=== PATIENT | male | born 1985 | race Caucasian/White ===

== ENCOUNTER 2016-12-21 20:01 | Inpatient (IN) ==
[2016-12-21] MEDS ORDERED: PANTOPRAZOLE 40 MG VIAL IV STA (20:16)
[2016-12-21] MEDS ORDERED: methylPREDNISolone SOD SUC 125 MG/2 ML VIAL IV STA (20:16)
[2016-12-21] MEDS ORDERED: LEVOFLOXACIN INJ 750 MG in PREMIX 1 EACH IV STA (20:16)
[2016-12-21] MEDS ORDERED: DICYCLOMINE 20 MG/2 ML AMP IM ONE ×2 (20:16→20:33)
[2016-12-21] MEDS ORDERED: METOCLOPRAMIDE 10 MG/2 ML VIAL IV STA (20:16)
[2016-12-21] MEDS ORDERED: ONDANSETRON 4 MG/2 ML VIAL IV STA (20:16)
[2016-12-21] MEDS ORDERED: SODIUM CHLORIDE 0.9% 2,000 ML IV STA (20:16)
--- NOTE | 2016-12-21 20:20 | Emergency Department Note ---
Arrival - Arrival Chief Complaint: Abdominal / Flank Pain Stated Complaint: vomiting ED Nursing Triage Note: C/O Generalized abd pain/nausea/vomiting. Denies fever at home. Last [id number]. Pt has hx of Crohn's disease, but hasn't been followed by anyone since Dr. Oseguera retired. Mode of Arrival: Ambulatory Limitations: No Limitations Source: Patient Time Seen by Provider: 12/21/16 20:16 - History of Present Illness HPI Narrative: Is 31-year-old white male presents with 3 days of diarrhea, nausea, vomiting, and abdominal cramping. The patient has long-standing Crohn's disease and is status post colon surgery for this condition in the past. He has been having watery diarrhea approximately 12 times a day but none containing red blood or melena. He also denies any chills or fever. The patient has not seen a physician in over 2 years for his condition and does not take medication on a regular basis. At rest he does not appear in any medical distress. Onset (ago): day(s) (patient presents 3 days post-onset of symptoms) Consistency: constant Allergies/Adverse Reactions: Allergies Allergy/AdvReac Type Severity Reaction Status Date / Time No Known Allergies Allergy Verified 12/21/16 20:04 Home Medications: Home Medications Medication Instructions Recorded Confirmed Type Bupropion HCl [Zyban] 300 mg PO BEDTIME 12/21/16 12/21/16 History HydrOXYzine PAMOATE CAP [Vistaril 50 mg PO BEDTIME 12/21/16 12/21/16 History Cap] Review of System - Review of System 12 point system: reviewed and no additional remarkable complaints except as stated - Review of System Constitutional: Present: as per HPI Gastrointestinal: Present: as per HPI Medical,Surgical,& Family Hx - Medical History Gastrointestinal: History of: Crohn's Disease - Surgical History Abdominal Surgeries: Surgical HX of: Abdominal Surgery (colon surg) - Social History Smoking Status: Current every day smoker Frequency of Alcohol Use: None Type of Drug Use: None Exam Physical Examination: GENERAL: Well developed, well nourished white male in no acute distress. HEENT: Normocephalic. No trauma. Moist mucous membranes. EOMI. PERRLA. ENT clear NECK: Supple. No adenopathy. CARDIAC: Regular. No murmurs. Heart rate 110 CHEST: Clear to auscultation. No respiratory distress. O2 sat 99% ABDOMEN: Soft. Right gutter tenderness. Hypoactive bowel sounds. EXTREMITIES: No trauma. Normal ROM. No pedal edema. SKIN: No diaphoresis. No rash. NEURO: Alert. Neuro intact No focal deficits. Vital Signs: Vital Signs Temperature 98.7 F 12/21/16 20:04 Pulse Rate 106 H 12/21/16 20:04 Respiratory Rate 16 12/21/16 20:04 Blood Pressure 136/75 12/21/16 20:04 O2 Sat by Pulse Oximetry 99 12/21/16 20:04 Course - Reevaluation(s) Reevaluation #1: Discussed with patient the results of his studies which reveal active Crohn's flare - Consultations Consultation #1: Discussed with Dr. Black, hospitalist, who will admit for further evaluation and treatment. Results - Labs CBC & BMP: 12/21/16 20:24 12/21/16 20:24 Labs: I have reviewed the laboratory noted the elevated white blood cell count. - Diagnostic Findings Procedure: CT Abdomen and Pelvis: image reviewed by me, report reviewed by me ( significantly thickened lining of the terminal ileum and cecum come along with submucosa was trending associated with active Crohn's.) Disposition Clinical Impression: exacerbation of Crohn's disease. Case discussed with: patient Disposition: Still a Patient Condition: Stable Time of Disposition: 23:10
[2016-12-21 20:31] LABS: Basophils # 0.1 10*3/uL (0.0-0.2); Basophils % 0.5 % (0.0-0.8); Eosinophils # 0.5 10*3/uL (0.0-0.87); Eosinophils % 3.3 % (0.00-10.9); Hematocrit 37.6 VOL% (42.0-52.0); Immature Granulocytes % 0.4 %; Immature Granulocytes Absolute 0.05 #; Lymphocytes # 3.7 10*3/uL (1.4-4.0); Lymphocytes % 26.9 % (21.2-54.2); Mean Corpuscular HGB Conc 31.9 GM/DL (32-36); Mean Corpuscular Hemoglobin 25 PG (27-34); Mean Corpuscular Volume 78.2 FL (87-102); Mean Platelet Volume 8.9 FL (9.6-12.0); Monocytes # 0.9 10*3/uL (0.11-0.8); Monocytes % 6.9 % (1.7-12.7); Neutrophils # 8.5 10*3/uL (1.4-7.4); Platelet Count 439 T/CUMM (130-400); Red Blood Count 4.81 MC/CUMM (3.8-5.5); Red Cell Distribution Width 15.2 % (9.3-17.3); White Blood Count 13.7 T/CUMM (4-12)
[2016-12-21] MEDS ORDERED: LEVOFLOXACIN INJ 150 ML IV ONE (20:32)
[2016-12-21] MEDS ORDERED: ONDANSETRON 4 MG/2 ML VIAL ONE (20:33)
[2016-12-21] MEDS ORDERED: METOCLOPRAMIDE 10 MG/2 ML VIAL ONE (20:33)
[2016-12-21] MEDS ORDERED: PANTOPRAZOLE 40 MG VIAL IV ONE (20:33)
[2016-12-21] MEDS ORDERED: methylPREDNISolone SOD SUC 125 MG/2 ML VIAL ONE (20:33)
[2016-12-21 21:02] LABS: Apearance,Urine CLEAR (Clear); Bilirubin,Urine Negative (Negative); Blood, Urine Negative (Negative); Glucose,Urine (UA) Negative (Negative); Hyaline Casts,Urine 4 /LPF (0-3); Ketones,Urine Negative (Negative); Mucus,Urine Occasional /LPF (Occasional); Nitrite,Urine Negative (Negative); Protein,Urine Negative; Urine Color Yellow (Yellow); Urine Urobilinogen < 2.0 EU/DL (0.2-1.0); WBC,Urine <1 /HPF (0-6)
[2016-12-21 21:03] LABS: Alanine Aminotransferase 17 U/L (16-61); Albumin 3.2 G/DL (3.4-5.0); Alkaline Phosphatase 104 U/L (45-117); Amylase 88 U/L (25-115); Aspartate Amino Transferase 17 U/L (0-37); Bilirubin,Total < 0.39 MG/DL (0.2-1.0); Blood Urea Nitrogen 8 MG/DL (7-18); Glucose 89 MG/DL (74-106); Osmolality,Calculated 284.7 MOS/KG (273-304); Sodium 145 MMOL/L (136-145); Total Protein 7.4 G/DL (6.4-8.3)
--- NOTE | 2016-12-21 22:54 | CT Report ---
Exam: CT abdomen pelvis w con Date: 12/21/2016 8:56 PM Comparison: 08/16/2016 Indication: Nausea, vomiting, right lower quadrant pain, Crohn's disease Technique:[Sequential axial scans of the abdomen and pelvis were obtained following ingestion of oral contrast and injection of 100 cc of Omnipaque 350. Coronal and sagittal 2-D reconstructions were obtained. Total DLP: 425.40] Findings: No acute findings at the visualized lung bases. The liver is normal in size with no masses or dilated ducts. The gallbladder is contracted. The spleen, pancreas, adrenal glands, and kidneys are stable in appearance. No renal or ureteral calculi are identified. The aorta is normal in size with no adjacent adenopathy. Postoperative findings are noted in the cecum/distal ileum with history of reported prior appendectomy. Progressive thickening of the wall of the distal ileum. The bowel is slightly more distended with adjacent minimal fluid/soft tissue stranding. Progressive gaseous distention of the more proximal small bowel with the largest loop measuring 30 mm in diameter. No significant oral contrast reaching the colon. No evidence of diverticulitis or free air. Minimal free fluid in the pelvis. The prostate and urinary bladder are stable in appearance with no acute osseous findings. Impression: Progressive in the cecum/terminal ileum with history of Crohn's disease. Diffuse thickening of the wall of the distal ileum measuring 12 mm. The small bowel is slightly more dilated with minimal fluid/soft tissue stranding. No free air is identified. Prior appendectomy. Nonspecific contraction of the gallbladder. PROCEDURE INTERPRETED AT [facility] DEPARTMENT OF RADIOLOGY Final Report Signed by: Dr. Gissel Tejada
[2016-12-22] MEDS ORDERED: MORPHINE 2 MG/1 ML SYRINGE IV PRN (00:30)
[2016-12-22] MEDS ORDERED: ACETAMINOPHEN 325 MG TABLET PO PRN (00:30)
[2016-12-22] MEDS ORDERED: ONDANSETRON 4 MG/2 ML VIAL IV PRN (00:30)
--- NOTE | 2016-12-22 01:03 | Hospitalist History & Physical ---
Assessment and Plan (1) Crohn disease Status: Acute Assessment and plan: The patient has symptoms consistent with Crohn disease exacerbation. The patient has received moderate dose Solu-Medrol in the emergency room. I'm going to continue with lower dose Solu-Medrol twice daily as well as metronidazole. We will obtain GI consultation morning. Current Visit: Yes Qualifiers: Gastrointestinal tract location: small intestine Digestive disease complication type: without complication Qualified Code(s): K50.00 - Crohn's disease of small intestine without complications History of Present Illness Chief complaint: abdominal pain History of present illness: Mr. Blankenship is a 31 year old male with history of previous appendectomy and diagnosis of Crohn disease at that time, which was about 5 years ago. The patient states that he had minimal abdominal discomfort symptoms intermittently until last August when he had a moderate episode. The patient was evaluated in the emergency room and given oral steroid medication with instruction to follow-up with Dr. Savage. The patient did not follow-up. The patient now comes to the hospital with 3 days of increasing abdominal discomfort in the right mid abdomen. The patient denies fever, chills, dysuria, diaphoresis. The patient's symptoms are moderate, colicky, and progressive. Home Medications Medication Instructions Recorded Confirmed Type Bupropion HCl [Zyban] 300 mg PO BEDTIME 12/21/16 12/21/16 History HydrOXYzine PAMOATE CAP [Vistaril 50 mg PO BEDTIME 12/21/16 12/21/16 History Cap] Allergies Allergy/AdvReac Type Severity Reaction Status Date / Time No Known Allergies Allergy Verified 12/21/16 20:04 Medical,Surgical,& Family Hx - Medical History Gastrointestinal: History of: Crohn's Disease - Surgical History Abdominal Surgeries: Surgical HX of: Abdominal Surgery (colon surg) - Family History Family History: Reports;: Family Hypertension - Social History Smoking Status: Current every day smoker Frequency of Alcohol Use: None Type of Drug Use: None Marital Status: Single Lives With:: Alone Functional capacity: independent ambulation 12 point system: reviewed and no additional remarkable complaints except as stated Exam - Constitutional Vitals: Period Temp Pulse Resp BP Sys/Nobles Pulse Ox Last 24 Hr 102 14 117/74 99 Exam: Constitutional System: Mild distress. No tremulousness. Head: Normocephalic, atraumatic. Ears, Nose and Throat System: No evidence of Otitis or Mastoiditis. No epistaxis or discharge Eyes System: Pupils equal, round, and reactive. Extraocular muscles intact. Neck: Supple, without adenopathy, No jugular venous distention. No thyromegaly , neck mass, or prior surgery apparent. Respiratory System: Chest clear to auscultation. Cardiovascular System: Heart with regular rate and rhythm. No murmur. GI System: Abdomen soft, moderate mid right abdominal discomfort without guarding. Normoactive bowel sounds present. Musculoskeletal System: limbs with no pedal edema. Full distal pulses. Neurological System: No discernable sensory deficit. No aphasia Psychiatric System: Conversation is rational Results - Labs CBC & BMP: 12/21/16 20:24 12/21/16 20:24 Lab Results: I have reviewed the past 24 hour labs - Diagnostic Findings Procedure: CT Abdomen and Pelvis: report reviewed by me (thickening at the ileocecal junction with previous surgery. There seems to be greater thickening than seen on last CT scan in August)
[2016-12-22] MEDS: SODIUM CHLORIDE 0.9% 1,000 ML IV SCH ×3 (01:14→18:56)
[2016-12-22] MEDS: metroNIDAZOLE INJ 500 MG in PREMIX 1 EACH IV SCH ×4 (01:16→18:57)
[2016-12-22] MEDS: ENOXAPARIN 40 MG/0.4 ML SYRINGE SUBCUT SCH (01:18)
[2016-12-22 05:15] LABS: Basophils % 0.3 % (0.0-0.8); Hematocrit 34.1 VOL% (42.0-52.0); Hemoglobin 10.8 GM/DL (14.0-18.0); Immature Granulocytes % 0.3 %; Immature Granulocytes Absolute 0.04 #; Lymphocytes # 1.1 10*3/uL (1.4-4.0); Lymphocytes % 9.2 % (21.2-54.2); Mean Corpuscular HGB Conc 31.7 GM/DL (32-36); Mean Corpuscular Hemoglobin 25 PG (27-34); Mean Corpuscular Volume 78.2 FL (87-102); Mean Platelet Volume 9.1 FL (9.6-12.0); Monocytes % 0.3 % (1.7-12.7); Neutrophils # 10.4 10*3/uL (1.4-7.4); Neutrophils % 89.9 % (38.7-73.9); Platelet Count 404 T/CUMM (130-400); Red Blood Count 4.36 MC/CUMM (3.8-5.5); Red Cell Distribution Width 14.9 % (9.3-17.3); White Blood Count 11.6 T/CUMM (4-12)
[2016-12-22 05:50] LABS: Albumin 2.4 G/DL (3.4-5.0); Bilirubin,Total 0.4 MG/DL (0.2-1.0); Calcium 8.2 MG/DL (8.5-10.1); Total Protein 6.2 G/DL (6.4-8.3)
[2016-12-22] MEDS: PANTOPRAZOLE 40 MG TABLET PO SCH (10:11)
--- NOTE | 2016-12-22 19:42 | Gastrointestinal Consult Note ---
Assessment and Plan (1) Crohn's disease, small intestine Status: Acute Assessment and plan: This patient states that he did not get much relief from Entocort but it is unclear if he actually this for any extended length of time. We need to talk about steroid side effects and the fact that he is on basically nothing for his Crohn's disease as an outpatient. We will go ahead and try him on some Pentasa in addition to putting him on some Solu-Medrol since he is coming out of the emergency room. We'll suggest use of 60 mg twice daily and we will likely rapidly taper this if the patient is doing better tomorrow. Agree that he needs some antibiotic coverage given the white blood cell count of 13,000, Flagyl is likely adequate for this. This may also treat the underlying C. difficile of present complicating the picture. Stool cultures are pending. This patient does need a colonoscopy as an outpatient although this does not have to be this admission. Once the 10 year benchmark is achieved, we typically have the patient come back every 2 years to check for dysplasia in the colon. Current Visit: Yes (2) Leukocytosis Status: Acute Assessment and plan: I suspect this may be due to the Crohn's disease but we will check stool cultures as well as C. difficile to see if these are positive. C. difficile certainly can worsen a Crohn's flare. Current Visit: Yes (3) Right lower quadrant abdominal pain Status: Acute Assessment and plan: Hopefully the patient's inflammation as reversible this point. We do not know if he is a candidate for biologic's, typically patients may have to fail therapy prior to starting on these. I think it may be reasonable to also consider putting the patient on 6-MP once his acute flare is improved-- probably 100 mg per day. Given his strong dislike of taking other medications this may be the most helpful for him, perhaps along with some baseline Entocort. Current Visit: Yes History of Present Illness Chief complaint: probable Crohn's flare with diarrhea and right lower quadrant pain History of present illness: Mr. Blankenship is a 31 year old male who has a history of Crohn's disease first diagnosed in 2004, the patient then had a significant flare that brought him to the attention of Dr. Oseguera after an appendectomy done by Dr. Francis on . The patient developed some staphylococcal aureus abscesses and his skin thereafter that were treated by Dr. Cancino and later presented with worsening of his Crohn's disease for right hemicolectomy and partial distal ileectomy again by Dr. Guerrero Francis on 01/25/12. He had been due to get Remicade shortly before that but has done so well since his surgery he has not required any biologic treatment. This being said is been getting by with occasional flares of his disease that he is simply not sought treatment for. When his disease is under fair control he has 3-4 bowels once per day, when he is experiencing a flare this increases to about 12 per day and is associated with a great deal of pain but not bleeding. The pain is mostly in the right lower quadrant. He experienced one such flare yesterday and CT scan showed dilation of the small bowel after 12 cm segment of thickening and fat stranding near the distal terminal ileum before the connection with the remaining transverse. Since starting on IV therapy with levofloxacin (1 dose) and Flagyl and an initial dose of Solu-Medrol his pain has improved significantly-- now down to a 4 out of 10 in intensity. The initial white blood cell count was elevated to 13.7 and is now down to 11.6 from yesterday. She does have a mild anemia with hematocrit of 34.1 and hemoglobin of 10.8 dL percent, his amylase and lipase are normal as are his liver function tests with a total protein and albumin is 6.2 and 2.4 post rehydration. He does not have any spine, SI, or other joint pains except for occasional knee pain. He does not have any rashes or ulcerating lesions on his pretibia, he does not have any symptoms of uveitis or photophobia. Home Medications Medication Instructions Recorded Confirmed Type Bupropion HCl [Zyban] 300 mg PO BEDTIME 12/21/16 12/21/16 History HydrOXYzine PAMOATE CAP [Vistaril 50 mg PO BEDTIME 12/21/16 12/21/16 History Cap] Allergies Allergy/AdvReac Type Severity Reaction Status Date / Time No Known Allergies Allergy Verified 12/21/16 20:04 Medical,Surgical,& Family Hx - Medical History Gastrointestinal: History of: Crohn's Disease - Surgical History Thoracic Surgeries: Patient denies;: Lobectomy Abdominal Surgeries: Surgical HX of: Abdominal Surgery (colon surg) - Family History Family History: Reports;: Family Heart Disease (Heart attack), Family Hypertension - Social History Smoking Status: Current every day smoker Frequency of Alcohol Use: None Type of Drug Use: None Review of systems: Constitutional: Denies fever, chills, he does complain of some minimal nausea , and vomiting Eyes: Denies dry eyes, and scleral icterus HENT: Denies headaches Cardiovascular: Denies acute chest pain and claudication Respiratory: Denies shortness of breath, wheezing, and difficulty breathing, denies cough Gastrointestinal: As noted in the HPI Genitourinary: Denies dysuria and hematuria Neurologic: Denies vision loss, and loss of sensation Musculoskeletal: Denies joint swelling, although does have some mild joint stiffness, and muscular weakness Psychiatric: Denies depression and melva symptoms but does have a history of some noncompliance. Heme-Lymph: Denies easy bruising, lymph node enlargement or tenderness, night sweats, excessive bleeding Allergies-immunologic: Denies pruritus and rhinorrhea Exam - Constitutional Vitals: Period Temp Pulse Resp BP Sys/Nobles Pulse Ox Last 24 Hr 97.2 F-98 F 74-102 14-20 87-121/52-74 96-99 General appearance: normal weight - Head Head exam: Present: normocephalic, atraumatic - Eye Eye exam: Present: EOMI Pupils: Present: MARTINA - Respiratory Respiratory exam: Present: clear to auscultation bilaterally. Absent: rhonchi, stridor, wheezes - Cardiovascular Cardiovascular exam: Present: regular rate and rhythm - GI/Abdominal GI/Abdominal exam: Present: normal bowel sounds, tenderness (in the right lower abdomen without guarding or rebound), soft, other (rectal exam shows no perianal fistulas or fissures, no abscesses seen, stool is present brown and guaiac negative.). Absent: distended, guarding, rebound - Back Exam Back exam: Present: normal inspection - Neurological Exam Neurological exam: Present: alert, oriented X3, CN II-XII intact. Absent: motor sensory deficit - Psychiatric Psychiatric exam: Present: normal affect, normal mood - Skin Skin exam: Present: warm. Absent: erythema Results - Labs CBC & BMP: 12/22/16 04:45 12/22/16 04:45
[2016-12-22] MEDS ORDERED: methylPREDNISolone SOD SUC 125 MG/2 ML VIAL IV SCH (20:00)
[2016-12-22] MEDS: HydrOXYzine PAMOATE 25 MG CAPSULE PO SCH (21:17)
[2016-12-22] MEDS: buPROPion SR 150 MG TABLET PO SCH (21:17)
[2016-12-22] MEDS: MESALAMINE 250 MG CAPSULE PO SCH (23:25)
[2016-12-23] MEDS: metroNIDAZOLE INJ 500 MG in PREMIX 1 EACH IV SCH ×4 (00:34→18:17)
[2016-12-23] MEDS: ENOXAPARIN 40 MG/0.4 ML SYRINGE SUBCUT SCH ×2 (00:35→23:39)
[2016-12-23] MEDS: SODIUM CHLORIDE 0.9% 1,000 ML IV SCH ×4 (02:50→23:39)
--- NOTE | 2016-12-23 08:00 | Gastrointestinal Progress Note ---
Assessment and Plan (1) Crohn's disease, small intestine Status: Acute Assessment and plan: This patient states that he did not get much relief from Entocort but it is unclear if he actually this for any extended length of time. We need to talk about steroid side effects and the fact that he is on basically nothing for his Crohn's disease as an outpatient. We will go ahead and try him on some Pentasa in addition to putting him on some Solu-Medrol since he is coming out of the emergency room. We'll suggest use of 60 mg twice daily and we will likely rapidly taper this if the patient is doing better tomorrow. Agree that he needs some antibiotic coverage given the white blood cell count of 13,000, Flagyl is likely adequate for this. This may also treat the underlying C. difficile of present complicating the picture. Stool cultures are pending. This patient does need a colonoscopy as an outpatient although this does not have to be this admission. Once the 10 year benchmark is achieved, we typically have the patient come back every 2 years to check for dysplasia in the colon. 12/23/16-- the patient is doing much better today with 0 out of 10 intensity abdominal pain, unfortunately he has not been able to receive the Pentasa and we may not be able to get this before he leaves. This is not stocked to this hospital for reasons not clear to me. We do not yet have the CBC results from today with white count however I suspect this may go up as his steroids have been continued. I'm trimming his Solu-Medrol from 60 mg twice a day to daily and we may switch this over to oral Entocort tomorrow. I would also like to get him started on 6-mercaptopurine to help keep his disease under control at baseline perhaps without the use of steroids. This unfortunately will take approximately 2 months to completely in. We will check his liver function tests tomorrow. Current Visit: Yes (2) Leukocytosis Status: Acute Assessment and plan: I suspect this may be due to the Crohn's disease but we will check stool cultures as well as C. difficile to see if these are positive. C. difficile certainly can worsen a Crohn's flare. 12/23/16--CBC results are not back yet. Anticipate this patient will need a colonoscopy upon discharge as an outpatient at some point. Current Visit: Yes (3) Right lower quadrant abdominal pain Status: Acute Assessment and plan: Hopefully the patient's inflammation as reversible this point. We do not know if he is a candidate for biologic's, typically patients may have to fail therapy prior to starting on these. I think it may be reasonable to also consider putting the patient on 6-MP once his acute flare is improved-- probably 100 mg per day. Given his strong dislike of taking other medications this may be the most helpful for him, perhaps along with some baseline Entocort. 12/23/16-- the pain has resolved at this point, now adding 6-MP and coming back his Solu-Medrol. Current Visit: Yes Gastroenterology - PN: Subj Interval history: The patient has 0 out of 10 intensity abdominal pain and feels much better and hungrier. We will see how he tolerates a low-residue diet. I'm going to cut back his IV steroids to once a day of Solu-Medrol. I would like to start some 6 -MP today although this will take 1-2 months to completely exert an effect. We should be able to see if this is effecting his liver function tests, at least in the short-term. Exam (Progress Note) - Constitutional Vitals: Period Temp Pulse Resp BP Sys/Nobles Pulse Ox Last 24 Hr 97.2 F-97.8 F 74-88 16-19 83-112/42-70 95-99 General appearance: no acute distress - Head Head exam: Present: normocephalic, atraumatic - Eye Eye exam: Present: EOMI - Respiratory Respiratory exam: Present: clear to auscultation bilaterally - Cardiovascular Cardiovascular exam: Present: regular rate and rhythm - GI/Abdominal GI/Abdominal exam: Present: normal bowel sounds, soft. Absent: ascites, distended, tenderness, rebound - Extremities Exam Extremities exam: Absent: edema - Neurological Exam Neurological exam: Present: alert, oriented X3, CN II-XII intact. Absent: motor sensory deficit - Psychiatric Psychiatric exam: Present: normal affect, normal mood - Skin Skin exam: Present: warm Results - Labs CBC & BMP: 12/22/16 04:45 12/22/16 04:45
[2016-12-23 08:22] LABS: Hematocrit 31.2 VOL% (42.0-52.0); Hemoglobin 9.9 GM/DL (14.0-18.0); Immature Granulocytes % 0.7 %; Immature Granulocytes Absolute 0.04 #; Lymphocytes # 0.9 10*3/uL (1.4-4.0); Lymphocytes % 16.3 % (21.2-54.2); Mean Corpuscular HGB Conc 31.7 GM/DL (32-36); Mean Corpuscular Hemoglobin 25 PG (27-34); Mean Corpuscular Volume 78.6 FL (87-102); Mean Platelet Volume 9.9 FL (9.6-12.0); Monocytes # 0.1 10*3/uL (0.11-0.8); Monocytes % 2.1 % (1.7-12.7); Neutrophils # 4.7 10*3/uL (1.4-7.4); Neutrophils % 80.9 % (38.7-73.9); Platelet Count 390 T/CUMM (130-400); Red Blood Count 3.97 MC/CUMM (3.8-5.5); Red Cell Distribution Width 15.7 % (9.3-17.3); White Blood Count 5.8 T/CUMM (4-12)
[2016-12-23] MEDS ORDERED: methylPREDNISolone SOD SUC 40 MG/1 ML VIAL IV SCH (09:00)
[2016-12-23] MEDS: MESALAMINE 250 MG CAPSULE PO SCH ×4 (09:50→20:39)
[2016-12-23] MEDS: PANTOPRAZOLE 40 MG TABLET PO SCH (09:52)
[2016-12-23] MEDS: MERCAPTOPURINE 50 MG TABLET PO SCH (09:53)
--- NOTE | 2016-12-23 11:30 | Hospitalist Progress Note ---
Assessment and Plan (1) Crohn disease Status: Acute Current Visit: Yes Qualifiers: Gastrointestinal tract location: small intestine Digestive disease complication type: without complication Qualified Code(s): K50.00 - Crohn's disease of small intestine without complications Hospitalist: Subjective Interval history: Feels better today. Still having some diarrhea but has not noticed any blood. Assessment plan 2016: Crohn's disease Basically being managed by GI. We'll continue following their recommendations Exam - Constitutional Vitals: Period Temp Pulse Resp BP Sys/Nobles Pulse Ox Last 24 Hr 97.3 F-97.8 F 79-88 16-19 83-110/42-70 95-99 Exam: Gen.: In no acute distress Head and neck: Pupils are reactive neck is supple Cardiovascular: S1-S2 with regular rate and rhythm Respiratory: Lungs are clear to auscultation and percussion Abdomen: Soft, bowel sounds are positive Extremities: No edema Neuro: Grossly intact Results - Labs CBC & BMP: 12/23/16 06:18 12/22/16 04:45 Lab Results: I have reviewed the past 24 hour labs
[2016-12-23] MEDS: HydrOXYzine PAMOATE 25 MG CAPSULE PO SCH (20:38)
[2016-12-23] MEDS: buPROPion SR 150 MG TABLET PO SCH (20:38)
[2016-12-24] MEDS: metroNIDAZOLE INJ 500 MG in PREMIX 1 EACH IV SCH ×2 (00:09→06:04)
[2016-12-24 06:43] LABS: Basophils % 0.2 % (0.0-0.8); Eosinophils % 0.1 % (0.00-10.9); Hematocrit 29.1 VOL% (42.0-52.0); Hemoglobin 9.1 GM/DL (14.0-18.0); Immature Granulocytes % 0.5 %; Immature Granulocytes Absolute 0.05 #; Lymphocytes # 2.7 10*3/uL (1.4-4.0); Lymphocytes % 25.1 % (21.2-54.2); Mean Corpuscular HGB Conc 31.3 GM/DL (32-36); Mean Corpuscular Hemoglobin 25 PG (27-34); Mean Corpuscular Volume 79.5 FL (87-102); Mean Platelet Volume 9.7 FL (9.6-12.0); Monocytes % 8.9 % (1.7-12.7); Neutrophils # 7.1 10*3/uL (1.4-7.4); Neutrophils % 65.2 % (38.7-73.9); Platelet Count 356 T/CUMM (130-400); Red Blood Count 3.66 MC/CUMM (3.8-5.5); Red Cell Distribution Width 15.8 % (9.3-17.3); White Blood Count 10.9 T/CUMM (4-12)
[2016-12-24 07:12] LABS: Alanine Aminotransferase 12 U/L (16-61); Albumin 2.3 G/DL (3.4-5.0); Alkaline Phosphatase 66 U/L (45-117); Aspartate Amino Transferase 11 U/L (0-37); Bilirubin,Direct < 0.1 MG/DL (0.0-0.20); Bilirubin,Indirect 0.3 MG/DL (0.0-1.0); Bilirubin,Total < 0.39 MG/DL (0.2-1.0); Total Protein 5.2 G/DL (6.4-8.3)
--- NOTE | 2016-12-24 08:53 | Gastrointestinal Progress Note ---
Assessment and Plan (1) Crohn's disease, small intestine Status: Acute Assessment and plan: This patient states that he did not get much relief from Entocort but it is unclear if he actually this for any extended length of time. We need to talk about steroid side effects and the fact that he is on basically nothing for his Crohn's disease as an outpatient. We will go ahead and try him on some Pentasa in addition to putting him on some Solu-Medrol since he is coming out of the emergency room. We'll suggest use of 60 mg twice daily and we will likely rapidly taper this if the patient is doing better tomorrow. Agree that he needs some antibiotic coverage given the white blood cell count of 13,000, Flagyl is likely adequate for this. This may also treat the underlying C. difficile of present complicating the picture. Stool cultures are pending. This patient does need a colonoscopy as an outpatient although this does not have to be this admission. Once the 10 year benchmark is achieved, we typically have the patient come back every 2 years to check for dysplasia in the colon. 12/23/16-- the patient is doing much better today with 0 out of 10 intensity abdominal pain, unfortunately he has not been able to receive the Pentasa and we may not be able to get this before he leaves. This is not stocked to this hospital for reasons not clear to me. We do not yet have the CBC results from today with white count however I suspect this may go up as his steroids have been continued. I'm trimming his Solu-Medrol from 60 mg twice a day to daily and we may switch this over to oral Entocort tomorrow. I would also like to get him started on 6-mercaptopurine to help keep his disease under control at baseline perhaps without the use of steroids. This unfortunately will take approximately 2 months to completely in. We will check his liver function tests tomorrow. 12/24/16--patient's tolerating his advancement in diet well now on low-residue. It is safer that he is still having approximately 6-8 bowel movements per day but I do note that he is not clear liquids up until this morning. We will go ahead and start the Entocort at 6 mg per day and stop Solu-Medrol now. He is tolerated at least one dose of the 6-MP and we'll need to return again in 2 weeks for follow-up laboratories. A prescription has been provided to the patient to obtain as the [facility] clinic laboratory. He needs to follow-up in my office in one month and we will see how he is doing on the combination of 6-MP and Entocort EC. I will write him for 5 more days of Flagyl as well. For my standpoint, he can be discharged. We will need to arrange for a colonoscopy in the future. Current Visit: Yes (2) Leukocytosis Status: Acute Assessment and plan: I suspect this may be due to the Crohn's disease but we will check stool cultures as well as C. difficile to see if these are positive. C. difficile certainly can worsen a Crohn's flare. 12/23/16--CBC results are not back yet. Anticipate this patient will need a colonoscopy upon discharge as an outpatient at some point. 12/24/16--As noted above. Prescriptions have been written and are in the front of the chart for discharge. Current Visit: Yes (3) Right lower quadrant abdominal pain Status: Acute Assessment and plan: Hopefully the patient's inflammation as reversible this point. We do not know if he is a candidate for biologic's, typically patients may have to fail therapy prior to starting on these. I think it may be reasonable to also consider putting the patient on 6-MP once his acute flare is improved-- probably 100 mg per day. Given his strong dislike of taking other medications this may be the most helpful for him, perhaps along with some baseline Entocort. 12/23/16-- the pain has resolved at this point, now adding 6-MP and coming back his Solu-Medrol. 12/24/16--as noted above, pain is negative and 0 out of 10. Current Visit: Yes Gastroenterology - PN: Subj Interval history: Patient's bowel movements are approximately 6-8 per day but I do note that he has been on clear liquids and his pain is improved on the Flagyl/6-MP/Solu- Medrol regimen provided here. He is tolerating a low residue diet this morning. I would like to see him back in 2 weeks for laboratories ( prescription provided) and then to see him back in the office in one month. He seems anxious to leave. Exam (Progress Note) - Constitutional Vitals: Period Temp Pulse Resp BP Sys/Nobles Pulse Ox Last 24 Hr 97.9 F-98.4 F 80-88 18-20 88-119/50-62 93-99 General appearance: no acute distress - Head Head exam: Present: normocephalic, atraumatic - Eye Eye exam: Present: EOMI - Respiratory Respiratory exam: Present: clear to auscultation bilaterally - Cardiovascular Cardiovascular exam: Present: regular rate and rhythm - GI/Abdominal GI/Abdominal exam: Present: normal bowel sounds, tenderness (per mild tenderness to deep palpation in the right lower quadrant), soft. Absent: distended, guarding, mass, rebound - Extremities Exam Extremities exam: Absent: edema - Neurological Exam Neurological exam: Present: alert, oriented X3. Absent: motor sensory deficit - Psychiatric Psychiatric exam: Present: normal affect, normal mood - Skin Skin exam: Present: warm Results - Labs CBC & BMP: 12/24/16 04:49 12/22/16 04:45
[2016-12-24] MEDS: SODIUM CHLORIDE 0.9% 1,000 ML IV SCH (09:46)
[2016-12-24] MEDS: MERCAPTOPURINE 50 MG TABLET PO SCH (09:47)
[2016-12-24] MEDS: MESALAMINE 250 MG CAPSULE PO SCH ×2 (09:47→13:55)
[2016-12-24] MEDS: PANTOPRAZOLE 40 MG TABLET PO SCH (09:47)
[2016-12-24] MEDS ORDERED: BUDESONIDE 3 MG CAPSULE PO SCH (10:00)
--- NOTE | 2016-12-24 12:07 | Discharge Summary ---
Hospital Course - Hospital Course Hospital Course: 31-year-old white male who presented with small bowel Crohn's exacerbation. He was not on any significant medications on an outpatient basis. He was seen in consultation by Dr. Welch essentially managed him. Patient is feeling much better. Dr. Welch feels she can go home today. He has given him a prescription for all the medications that are noted in the chart. He patient's to follow-up with lab data per Dr. Welch's instructions. He's being discharge home today - Time spent with patient Time with patient DS: Less than 30 minutes Diagnosis - Discharge Diagnosis (1) Crohn disease Status: Acute Discharge Plan - Discharge Medications New Mesalamine Cap [Pentasa] 1,000 mg PO QID capsule Budesonide Cap [Entocort EC] 6 mg PO DAILY capsule Mercaptopurine [Purinethol] 100 mg PO DAILY tablet metroNIDAZOLE TAB [Flagyl Cap/Tab] 500 mg PO Q8HR tablet Continue HydrOXYzine PAMOATE CAP [Vistaril Cap] 50 mg PO BEDTIME Bupropion HCl [Zyban] 300 mg PO BEDTIME - Follow Up or Referral - Forms/Instructions Additional Discharge Instructions: Keep follow-up appointments with Dr. Welch in [facility] lab as instructed Exam - Constitutional Vitals: Period Temp Pulse Resp BP Sys/Nobles Pulse Ox Last 24 Hr 97.9 F-98.2 F 80-88 18-20 88-119/50-62 93-99 Discharge Results Procedures and tests throughout hospitalization: Pending Orders 12/23/16 Stool Culture Routine 12/25/16 04:00 CBC [Comp Blood Count Auto Diff] IN AM Labs on day of discharge: Labs from last 24 hours 12/24/16 12/24/16 04:49 04:49 WBC 10.9 D RBC 3.66 L Hgb 9.1 L Hct 29.1 L MCV 79.5 L MCH 25 L MCHC 31.3 L RDW 15.8 Plt Count 356 MPV 9.7 Neut % (Auto) 65.2 Lymph % (Auto) 25.1 [facility] % (Auto) 8.9 Eos % (Auto) 0.1 Baso % (Auto) 0.2 Neut # (Auto) 7.1 Lymph # (Auto) 2.7 [facility] # (Auto) 1.0 H Eos # (Auto) 0.0 Baso # (Auto) 0.0 Immature Gran % 0.5 Nucleated RBC % 0.0 Immature Gran # 0.05 Nucleated RBCs # 0.00 Total Bilirubin < 0.39 Direct Bilirubin < 0.1 Indirect Bilirubin 0.3 AST 11 ALT 12 L Alkaline Phosphatase 66 Total Protein 5.2 L Albumin 2.3 L Preliminary micro results at discharge 12/23/16 Unknown Stool Culture - Preliminary Stool Gram Positive Cocci DS: Provider Date of admission: 12/21/16 23:11 Primary care physician: . No PCP Attending physician on admission: Micaela Medina MD Consults: 12/22/16 00:30 Consult to Physician [CONS] Routine Comment: abdominal pain, chron disease Consulting Provider: Edson Welch Person Notified: Carissa Date Notified: 12/22/16 Time Notified: 10:23 Consult Notification Comment: 12/22/16 01:09 Consult to Dietitian [CONS] Routine Reason for Dietitian: Diet Instruction Discharging clinician: Vadim Street MD
[2016-12-24 14:00] VITALS: BP 109/66
[2016-12-24] MEDS ORDERED: metroNIDAZOLE 500 MG TABLET PO SCH (14:00)
== END 2016-12-24 15:10 | disposition home or self-care (01) | DRG 387 ==
LOC: N.ED 20:01 → N.EDINP 23:11 → N.5E 12-22 00:14
PROVIDERS: ADMIT Internal Medicine; ATTEND Internal Medicine

== ENCOUNTER 2017-12-11 09:58 | Inpatient (IN) ==
[2017-12-11] MEDS ORDERED: SODIUM CHLORIDE 0.9% 1,000 ML IV STA (12:47)
[2017-12-11] MEDS ORDERED: ONDANSETRON 4 MG/2 ML VIAL IV STA (12:47)
[2017-12-11] MEDS ORDERED: ONDANSETRON 4 MG/2 ML VIAL ONE (13:08)
[2017-12-11 13:22] LABS: Basophils % 0.3 % (0.0-0.8); Eosinophils # 0.2 10*3/uL (0.0-0.87); Eosinophils % 3.8 % (0.00-10.9); Hematocrit 27.5 VOL% (42.0-52.0); Hemoglobin 8.7 GM/DL (14.0-18.0); Immature Granulocytes Absolute 0.04 #; Lymphocytes # 1.6 10*3/uL (1.4-4.0); Lymphocytes % 41.5 % (21.2-54.2); Mean Corpuscular HGB Conc 31.6 GM/DL (32-36); Mean Corpuscular Hemoglobin 24 PG (27-34); Mean Platelet Volume 8.8 FL (9.6-12.0); Monocytes # 0.2 10*3/uL (0.11-0.8); Monocytes % 5.4 % (1.7-12.7); Neutrophils # 1.9 10*3/uL (1.4-7.4); Platelet Count 291 T/CUMM (130-400); Red Blood Count 3.57 MC/CUMM (3.8-5.5); Red Cell Distribution Width 16.4 % (9.3-17.3); White Blood Count 3.9 T/CUMM (4-12)
[2017-12-11 13:35] LABS: Albumin 2.7 G/DL (3.4-5.0); Bilirubin,Total 0.7 MG/DL (0.2-1.0); Calcium 8.3 MG/DL (8.5-10.1); Magnesium 1.7 MG/DL (1.8-2.4); Potassium 3.8 MMOL/L (3.5-5.1); Total Protein 7.2 G/DL (6.4-8.3)
[2017-12-11] MEDS ORDERED: diphenhydrAMINE CAP 25 MG CAPSULE PO PRN (16:26)
[2017-12-11] MEDS: SODIUM CHLORIDE 0.9% 1,000 ML IV SCH (17:21)
[2017-12-11] MEDS: ONDANSETRON 4 MG/2 ML VIAL IV PRN (19:01)
[2017-12-11 20:20] LABS: Apearance,Urine CLEAR (Clear); Bilirubin,Urine Negative (Negative); Blood, Urine Negative (Negative); Glucose,Urine (UA) Negative (Negative); Ketones,Urine Negative (Negative); Mucus,Urine Occasional /LPF (Occasional); Nitrite,Urine Negative (Negative); Protein,Urine Negative; Squamous Epithelial Cell,Urine Occasional /HPF (0-10); Urine Color Yellow (Yellow); Urine Specific Gravity 1.042 (1.001-1.035); Urine Urobilinogen < 2.0 EU/DL (0.2-1.0); WBC,Urine <1 /HPF (0-6)
[2017-12-11] MEDS: methylPREDNISolone SOD SUC 40 MG/1 ML VIAL IV SCH (21:05)
[2017-12-11] MEDS: metroNIDAZOLE INJ 500 MG in PREMIX 1 EACH IV SCH (21:06)
[2017-12-11] MEDS: LEVOFLOXACIN INJ 500 MG in PREMIX 1 EACH IV SCH (22:27)
[2017-12-12] MEDS: metroNIDAZOLE INJ 500 MG in PREMIX 1 EACH IV SCH ×3 (03:05→18:26)
[2017-12-12] MEDS: SODIUM CHLORIDE 0.9% 1,000 ML IV SCH ×3 (03:08→21:57)
[2017-12-12 06:45] LABS: Hematocrit 24.2 VOL% (42.0-52.0); Hemoglobin 7.5 GM/DL (14.0-18.0); Immature Granulocytes % 1.1 %; Immature Granulocytes Absolute 0.02 #; Lymphocytes # 0.6 10*3/uL (1.4-4.0); Lymphocytes % 29.5 % (21.2-54.2); Mean Corpuscular Hemoglobin 24 PG (27-34); Mean Corpuscular Volume 78.6 FL (87-102); Mean Platelet Volume 9.1 FL (9.6-12.0); Monocytes # 0.1 10*3/uL (0.11-0.8); Monocytes % 3.7 % (1.7-12.7); Neutrophils # 1.3 10*3/uL (1.4-7.4); Neutrophils % 65.7 % (38.7-73.9); Platelet Count 232 T/CUMM (130-400); Red Blood Count 3.08 MC/CUMM (3.8-5.5); Red Cell Distribution Width 16.2 % (9.3-17.3); White Blood Count 1.9 T/CUMM (4-12)
[2017-12-12] MEDS: methylPREDNISolone SOD SUC 40 MG/1 ML VIAL IV SCH ×3 (06:46→22:57)
[2017-12-12 07:07] LABS: Band Neutrophils 2 % (0-10); Lymphocytes 26 % (20-55); Segmented Neutrophils 70 % (50-85); Total Cells Counted 100
[2017-12-12 07:08] LABS: Elliptocytes Few; Hypochromasia 2+; Microcytosis 1+
[2017-12-12 07:09] LABS: Anisocytosis 1+; Platelet Estimate Normal; Spherocytes Slight
[2017-12-12 07:39] LABS: Calcium 8.4 MG/DL (8.5-10.1); Osmolality,Calculated 275.5 MOS/KG (273-304); Potassium 4.7 MMOL/L (3.5-5.1)
[2017-12-12] MEDS: MERCAPTOPURINE 50 MG TABLET PO SCH (09:58)
[2017-12-12] MEDS: PANTOPRAZOLE 40 MG TABLET PO SCH (09:59)
[2017-12-12] MEDS: FOLIC ACID 1 MG TABLET PO SCH ×2 (09:59→22:56)
[2017-12-12] MEDS: MULTIVITAMIN (CENTRUM) TABLET PO SCH (09:59)
[2017-12-12] MEDS: ONDANSETRON 4 MG/2 ML VIAL IV PRN (15:35)
[2017-12-12] MEDS: LEVOFLOXACIN INJ 500 MG in PREMIX 1 EACH IV SCH (22:56)
[2017-12-13] MEDS: metroNIDAZOLE INJ 500 MG in PREMIX 1 EACH IV SCH ×3 (00:55→17:01)
[2017-12-13] MEDS: methylPREDNISolone SOD SUC 40 MG/1 ML VIAL IV SCH ×3 (03:37→21:58)
[2017-12-13 05:21] LABS: Hematocrit 24.2 VOL% (42.0-52.0); Hemoglobin 7.5 GM/DL (14.0-18.0); Immature Granulocytes % 1.3 %; Immature Granulocytes Absolute 0.03 #; Lymphocytes # 0.5 10*3/uL (1.4-4.0); Lymphocytes % 22.5 % (21.2-54.2); Mean Corpuscular Hemoglobin 25 PG (27-34); Mean Corpuscular Volume 79.1 FL (87-102); Mean Platelet Volume 9.3 FL (9.6-12.0); Monocytes # 0.1 10*3/uL (0.11-0.8); Neutrophils # 1.6 10*3/uL (1.4-7.4); Neutrophils % 72.2 % (38.7-73.9); Platelet Count 244 T/CUMM (130-400); Red Blood Count 3.06 MC/CUMM (3.8-5.5); Red Cell Distribution Width 16.9 % (9.3-17.3); White Blood Count 2.3 T/CUMM (4-12)
[2017-12-13 05:49] LABS: Calcium 8.3 MG/DL (8.5-10.1); Osmolality,Calculated 277.4 MOS/KG (273-304); Potassium 4.8 MMOL/L (3.5-5.1)
[2017-12-13 05:58] LABS: Anisocytosis 1+; Hypochromasia 1+; Microcytosis 1+; Ovalocytes Slight; Platelet Estimate Normal
[2017-12-13] MEDS: SODIUM CHLORIDE 0.9% 1,000 ML IV SCH ×2 (09:00→19:02)
[2017-12-13] MEDS: MULTIVITAMIN (CENTRUM) TABLET PO SCH (09:01)
[2017-12-13] MEDS: FOLIC ACID 1 MG TABLET PO SCH ×2 (09:01→21:57)
[2017-12-13] MEDS: PANTOPRAZOLE 40 MG TABLET PO SCH (09:01)
[2017-12-13] MEDS: MERCAPTOPURINE 50 MG TABLET PO SCH (09:01)
[2017-12-13] MEDS: LEVOFLOXACIN INJ 500 MG in PREMIX 1 EACH IV SCH (22:00)
[2017-12-14] MEDS: metroNIDAZOLE INJ 500 MG in PREMIX 1 EACH IV SCH ×2 (03:15→08:43)
[2017-12-14] MEDS: SODIUM CHLORIDE 0.9% 1,000 ML IV SCH ×2 (03:17→18:20)
[2017-12-14] MEDS: PANTOPRAZOLE 40 MG TABLET PO SCH (08:16)
[2017-12-14] MEDS: FOLIC ACID 1 MG TABLET PO SCH ×2 (08:16→20:50)
[2017-12-14] MEDS: MULTIVITAMIN (CENTRUM) TABLET PO SCH (08:16)
[2017-12-14] MEDS: methylPREDNISolone SOD SUC 40 MG/1 ML VIAL IV SCH (08:37)
[2017-12-14] MEDS ORDERED: SODIUM CHLORIDE 0.9% 1,000 ML IV PRN (09:24)
[2017-12-14 09:25] LABS: Basophils % 0.2 % (0.0-0.8); Hematocrit 27.1 VOL% (42.0-52.0); Hemoglobin 8.2 GM/DL (14.0-18.0); Immature Granulocytes % 1.1 %; Immature Granulocytes Absolute 0.05 #; Lymphocytes % 21.8 % (21.2-54.2); Mean Corpuscular HGB Conc 30.3 GM/DL (32-36); Mean Corpuscular Hemoglobin 24 PG (27-34); Mean Corpuscular Volume 80.4 FL (87-102); Mean Platelet Volume 9.3 FL (9.6-12.0); Monocytes # 0.2 10*3/uL (0.11-0.8); Monocytes % 5.3 % (1.7-12.7); Neutrophils # 3.1 10*3/uL (1.4-7.4); Neutrophils % 71.6 % (38.7-73.9); Platelet Count 330 T/CUMM (130-400); Red Blood Count 3.37 MC/CUMM (3.8-5.5); Red Cell Distribution Width 17.9 % (9.3-17.3); White Blood Count 4.4 T/CUMM (4-12)
[2017-12-14 09:50] LABS: Calcium 8.4 MG/DL (8.5-10.1); Magnesium 1.7 MG/DL (1.8-2.4); Osmolality,Calculated 279.3 MOS/KG (273-304); Potassium 3.9 MMOL/L (3.5-5.1)
[2017-12-14 09:53] LABS: Anisocytosis 1+; Hypochromasia 1+; Microcytosis 1+
[2017-12-14 09:54] LABS: Acanthocytes Few; Ovalocytes Slight; Platelet Estimate Normal
[2017-12-14] MEDS ORDERED: IRON DEXTRAN 25 MG in SYRINGE 1 EACH IV ONE (10:00)
[2017-12-14] MEDS ORDERED: IRON DEXTRAN IV ONE (12:30)
[2017-12-14] MEDS ORDERED: SODIUM CHLORIDE 0.9% IV ONE (12:30)
[2017-12-14] MEDS: ZALEPLON 5 MG CAPSULE PO PRN (20:50)
[2017-12-15] MEDS: metroNIDAZOLE INJ 500 MG in PREMIX 1 EACH IV SCH ×4 (00:49→17:45)
[2017-12-15] MEDS: SODIUM CHLORIDE 0.9% 1,000 ML IV SCH ×4 (00:56→21:07)
[2017-12-15] MEDS: LEVOFLOXACIN INJ 500 MG in PREMIX 1 EACH IV SCH ×2 (02:39→21:02)
[2017-12-15 06:15] LABS: Basophils % 0.2 % (0.0-0.8); Eosinophils % 0.4 % (0.00-10.9); Hematocrit 26.6 VOL% (42.0-52.0); Hemoglobin 8.5 GM/DL (14.0-18.0); Immature Granulocytes % 0.7 %; Immature Granulocytes Absolute 0.03 #; Lymphocytes # 2.2 10*3/uL (1.4-4.0); Lymphocytes % 48.8 % (21.2-54.2); Mean Corpuscular Hemoglobin 25 PG (27-34); Mean Corpuscular Volume 79.2 FL (87-102); Mean Platelet Volume 9.5 FL (9.6-12.0); Monocytes # 0.2 10*3/uL (0.11-0.8); Monocytes % 3.8 % (1.7-12.7); Neutrophils # 2.1 10*3/uL (1.4-7.4); Neutrophils % 46.1 % (38.7-73.9); Platelet Count 253 T/CUMM (130-400); Red Blood Count 3.36 MC/CUMM (3.8-5.5); Red Cell Distribution Width 18.4 % (9.3-17.3); White Blood Count 4.5 T/CUMM (4-12)
[2017-12-15 06:43] LABS: Calcium 7.9 MG/DL (8.5-10.1); Magnesium 1.7 MG/DL (1.8-2.4); Osmolality,Calculated 277.3 MOS/KG (273-304); Potassium 4.2 MMOL/L (3.5-5.1)
[2017-12-15] MEDS: MULTIVITAMIN (CENTRUM) TABLET PO SCH (10:06)
[2017-12-15] MEDS: FOLIC ACID 1 MG TABLET PO SCH ×2 (10:06→20:59)
[2017-12-15] MEDS: PANTOPRAZOLE 40 MG TABLET PO SCH (10:07)
[2017-12-15] MEDS: ZALEPLON 5 MG CAPSULE PO PRN (21:01)
[2017-12-16] MEDS: metroNIDAZOLE INJ 500 MG in PREMIX 1 EACH IV SCH ×3 (01:51→18:17)
[2017-12-16 05:27] LABS: Basophils % 0.2 % (0.0-0.8); Eosinophils # 0.1 10*3/uL (0.0-0.87); Eosinophils % 2.6 % (0.00-10.9); Hematocrit 27.2 VOL% (42.0-52.0); Hemoglobin 8.7 GM/DL (14.0-18.0); Immature Granulocytes % 0.4 %; Immature Granulocytes Absolute 0.02 #; Lymphocytes # 2.8 10*3/uL (1.4-4.0); Mean Corpuscular Hemoglobin 25 PG (27-34); Mean Corpuscular Volume 79.1 FL (87-102); Mean Platelet Volume 9.5 FL (9.6-12.0); Monocytes # 0.1 10*3/uL (0.11-0.8); Monocytes % 2.8 % (1.7-12.7); Platelet Count 317 T/CUMM (130-400); Red Blood Count 3.44 MC/CUMM (3.8-5.5); Red Cell Distribution Width 18.6 % (9.3-17.3)
[2017-12-16] MEDS: SODIUM CHLORIDE 0.9% 1,000 ML IV SCH ×2 (05:32→14:46)
[2017-12-16 06:00] LABS: Calcium 7.9 MG/DL (8.5-10.1); Magnesium 1.7 MG/DL (1.8-2.4); Potassium 3.9 MMOL/L (3.5-5.1)
[2017-12-16] MEDS ORDERED: predniSONE 20 MG TABLET PO SCH (09:00)
[2017-12-16] MEDS: MULTIVITAMIN (CENTRUM) TABLET PO SCH (10:03)
[2017-12-16] MEDS: FOLIC ACID 1 MG TABLET PO SCH ×2 (10:03→21:20)
[2017-12-16] MEDS: PANTOPRAZOLE 40 MG TABLET PO SCH (10:04)
[2017-12-16] MEDS: LEVOFLOXACIN INJ 500 MG in PREMIX 1 EACH IV SCH (21:19)
[2017-12-16] MEDS: ZALEPLON 5 MG CAPSULE PO PRN (21:20)
[2017-12-17] MEDS: metroNIDAZOLE INJ 500 MG in PREMIX 1 EACH IV SCH ×2 (01:40→09:45)
[2017-12-17] MEDS: SODIUM CHLORIDE 0.9% 1,000 ML IV SCH ×2 (06:20→07:11)
[2017-12-17] MEDS: PANTOPRAZOLE 40 MG TABLET PO SCH (09:44)
[2017-12-17] MEDS: MULTIVITAMIN (CENTRUM) TABLET PO SCH (09:44)
[2017-12-17] MEDS: FOLIC ACID 1 MG TABLET PO SCH (09:44)
[2017-12-17 12:00] VITALS: BP 102/57
== END 2017-12-17 12:21 | disposition home or self-care (01) | DRG 386 ==
LOC: N.ED 09:58 → N.EDINP 14:39 → N.2E 16:25
PROVIDERS: ADMIT Hospitalist; ATTEND Hospitalist